=== PATIENT | male | born 1950 | race Caucasian/White ===

== ENCOUNTER → 2021-08-14 | Day surgery (SDC) | payer MEDICARE, OTHER ==
[~2021-08-14] VITALS: Ht 175.3 cm; Wt 92.8 kg
[~2021-08-14] MED LIST: ALDACTONE25 MG PO; ASPIRIN EC81 MG PO; BETAMETHASONE D TD; COREG12.5 MG PO; ENTRESTO 49 MG1 EACH PO; ENTRESTO 97 MG1 EACH PO; FAMOTIDINE40 MG PO; FARXIGA10 MG PO; FLOMAX0.4 MG PO; ISOSORBIDE MONO60 MG PO; NORCO 5-325 TA1 EACH PO; PERCOCET 10-321 EACH PO; PRALUENT P75 MG/1 ML IJ; PROCTO-MED HC28 GM TOP; PROTONIX 40MG T40 MG PO; SYMBICORT 16010.2 GM INH; SYNTHROID100 MCG PO; ZETIA10 MG PO
[2021-08-14 09:15] LABS: HCT 42.6 % (42.0-52.0); HGB 13.7 g/dl (13.2-18.0); MCHC 32.2 g/dL (32.0-36.0); MCV 90.1 fL (78.0-100.0); MPV 9.3 fL (6.0-9.5); RBC 4.73 M/uL (4.70-6.00); RDW 15.1 % (11.5-14.0); WBC 6.9 K/uL (4.0-10.5)
[2021-08-14 09:32] LABS: ALBUMIN 3.9 g/dL (3.4-5.0); BILIRUBIN - TOTAL 0.3 mg/dL (0.2-1.0); BUN/CREAT RATIO (CALC) 15.4 RATIO; CREATININE 1.69 mg/dL (0.67-1.17); GLOBULIN (CALCULATION) 3.9 g/dL; POTASSIUM 4.4 mmol/L (3.5-5.1); TOTAL PROTEIN 7.8 g/dL (6.4-8.2)
== END | disposition home or self-care (01) ==
LOC: FAS 08:35
PROVIDERS: Surgery
DX: Z12.11 Encounter for screening for malignant neoplasm of colon (principal); K29.50 Unspecified chronic gastritis without bleeding; K31.9 Disease of stomach and duodenum, unspecified; K21.9 Gastro-esophageal reflux disease without esophagitis; K64.1 Second degree hemorrhoids; I10 Essential (primary) hypertension; E78.5 Hyperlipidemia, unspecified; J44.9 Chronic obstructive pulmonary disease, unspecified; I25.2 Old myocardial infarction; Z95.5 Presence of coronary angioplasty implant and graft; Z79.82 Long term (current) use of aspirin; Z79.899 Other long term (current) drug therapy; Z88.8 Allergy status to other drugs, medicaments and biological substances; Z90.49 Acquired absence of other specified parts of digestive tract
CPT/HCPCS: 36415; 80053; J1100; J2704; J7120